=== PATIENT | female | born 1980 | race Caucasian/White ===

== ENCOUNTER 2022-06-25 10:55 | Outpatient (RCR) | payer OTHER, SELFPAY ==
[2022-06-25] VITALS (11 sets, daily range): BP systolic 100–127; BP diastolic 36–82
[2022-06-25] MEDS: NSS 250 IV (11:25)
[2022-06-25] MEDS: REMICADE 250 MG IV (11:25)
[2022-06-25] MEDS: ZYRTEC 10 MG PO (11:26)
[2022-06-25] MEDS: TYLENOL 650 MG PO (11:26)
== END 2022-07-17 23:59 | disposition home or self-care (01) ==
LOC: OID 10:55
PROVIDERS: ATTENDING PHYSICIAN Internal Medicine; FAMILY PHYSICIAN Family Medicine
DX: L40.59 Other psoriatic arthropathy (principal)
CPT/HCPCS: 96360; 96361; 96365; 96366; 96413; 96415; J1745

== ENCOUNTER 2023-06-19 11:35 | Outpatient (RCR) | payer OTHER, SELFPAY ==
[2023-05-22] VITALS (10 sets, daily range): BP systolic 92–113; BP diastolic 59–72
[2023-05-22] MEDS: TYLENOL 650 MG PO (13:32)
[2023-05-22] MEDS: ZYRTEC 10 MG PO (13:32)
[2023-05-22] MEDS: NSS 250 IV (13:33)
[2023-05-22] MEDS: REMICADE 250 MG IV (13:33)
[2023-06-19] VITALS (10 sets, daily range): BP systolic 104–125; BP diastolic 56–78
[2023-06-19] MEDS: REMICADE 250 MG IV (12:04)
[2023-06-19] MEDS: TYLENOL 650 MG PO (12:04)
[2023-06-19] MEDS: ZYRTEC 10 MG PO (12:04)
[2023-06-19] MEDS: NSS 250 IV (12:05)
[2023-06-19 12:31] LABS: % Basophils 0.9 % (0-2); % Immature Granulocytes 0.3 % (0-0.5); % Lymphocytes 36.3 % (20.5-51.1); % Monocytes 8.2 % (1.7-9.3); % Neutrophils 49.3 % (42.2-75.2); Absolute Basophils 0.1 10^3/uL (0-0.2); Absolute Eosinophils 0.3 10^3/uL (0-0.7); Absolute Lymphocytes 2.1 10^3/uL (1.2-3.4); Absolute Monocytes 0.5 10^3/uL (0.1-0.6); Absolute Neutrophils 2.8 10^3/uL (1.4-6.5); Hematocrit 30.6 % (37.0-47.0); Hemoglobin 9.9 g/dL (12.0-16.0); Mean Corp Hgb Conc. 32.4 g/dL (33.0-37.0); Mean Corpuscular Hgb 27.9 pg (27.0-31.0); Mean Corpuscular Volume 86.2 fL (81.0-99.0); Mean Platelet Volume 10.2 fL (7.4-10.4); Nucleated Red Blood Cells % 0 %; Platelet Count 240 10^3/uL (130-400); Red Blood Cell Count 3.55 10^6/uL (4.20-5.40); Red Cell Dist. Width 15.8 % (11.5-14.5); White Blood Cell Count 5.8 10^3/uL (4.8-10.8)
[2023-06-19 12:47] LABS: ALT (SGPT) 21 U/L (0-35); AST (SGOT) 26 U/L (14-36); Albumin 4.1 g/dl (3.5-5.0); Alkaline Phosphatase 79 U/L (38-126); Direct Bilirubin 0.4 mg/dl (0.0-0.4); Total Bilirubin 0.4 mg/dl (0.2-1.3); Total Protein 7.1 g/dl (6.3-8.2)
== END 2023-06-19 23:59 | disposition home or self-care (01) ==
LOC: OID 11:35
PROVIDERS: ATTENDING PHYSICIAN Internal Medicine; FAMILY PHYSICIAN Family Medicine
DX: L40.50 Arthropathic psoriasis, unspecified (principal)
CPT/HCPCS: 80076; 85025; 96413; 96415; J1745

== ENCOUNTER 2023-07-17 11:23 | Outpatient (RCR) | payer OTHER, SELFPAY ==
[2023-07-17] VITALS (10 sets, daily range): BP systolic 103–117; BP diastolic 59–69
[2023-07-17] MEDS: ZYRTEC 10 MG PO (11:58)
[2023-07-17] MEDS: SOLU-CORTEF 100 MG IV (11:58)
[2023-07-17] MEDS: TYLENOL 650 MG PO (11:58)
[2023-07-17] MEDS: NSS 250 IV (11:59)
[2023-07-17] MEDS: REMICADE 250 MG IV (11:59)
== END 2023-07-18 11:08 | disposition home or self-care (01) ==
LOC: OID 11:23
PROVIDERS: ATTENDING PHYSICIAN Internal Medicine; FAMILY PHYSICIAN Family Medicine
DX: L40.59 Other psoriatic arthropathy (principal); M46.85 Other specified inflammatory spondylopathies, thoracolumbar region
CPT/HCPCS: 96375; 96413; 96415; J1745

== ENCOUNTER 2023-08-14 10:42 | Outpatient (RCR) | payer OTHER, SELFPAY ==
[2023-08-14] VITALS (11 sets, daily range): BP systolic 100–118; BP diastolic 61–85
[2023-08-14] MEDS: CATHFLO/ACTIVASE 2 MG IV (11:30)
[2023-08-14] MEDS: TYLENOL 650 MG PO (11:32)
[2023-08-14] MEDS: ZYRTEC 10 MG PO (11:32)
[2023-08-14] MEDS: REMICADE 250 MG IV (11:55)
[2023-08-14] MEDS: NSS 250 IV (11:55)
== END 2023-08-15 09:16 | disposition home or self-care (01) ==
LOC: OID 10:42
PROVIDERS: ATTENDING PHYSICIAN Internal Medicine; FAMILY PHYSICIAN Family Medicine
DX: L40.50 Arthropathic psoriasis, unspecified (principal); T82.868A Thrombosis due to vascular prosthetic devices, implants and grafts, initial encounter; Y93.89 Activity, other specified
CPT/HCPCS: 96375; 96413; 96415; J1745; J2997

== ENCOUNTER 2023-09-11 12:58 | Outpatient (RCR) | payer OTHER, SELFPAY ==
[2023-09-11] VITALS (10 sets, daily range): BP systolic 94–113; BP diastolic 63–70
[2023-09-11] MEDS: NSS 250 IV (13:20)
[2023-09-11] MEDS: ZYRTEC 10 MG PO (13:21)
[2023-09-11] MEDS: TYLENOL 650 MG PO (13:21)
[2023-09-11] MEDS: REMICADE 250 MG IV (13:21)
== END 2023-09-12 08:42 | disposition home or self-care (01) ==
LOC: OID 12:58
PROVIDERS: ATTENDING PHYSICIAN Internal Medicine; FAMILY PHYSICIAN Family Medicine
DX: L40.50 Arthropathic psoriasis, unspecified (principal)
CPT/HCPCS: 96413; 96415; J1745

== ENCOUNTER 2023-10-09 12:56 | Outpatient (RCR) | payer OTHER, SELFPAY ==
[2023-10-09] VITALS (10 sets, daily range): BP systolic 100–109; BP diastolic 62–81
[2023-10-09] MEDS: ZYRTEC 10 MG PO (13:38)
[2023-10-09] MEDS: SOLU-CORTEF 100 MG IV (13:39)
[2023-10-09] MEDS: TYLENOL 650 MG PO (13:39)
[2023-10-09] MEDS: NSS 250 IV (13:40)
[2023-10-09] MEDS: REMICADE 250 MG IV (13:40)
[2023-10-09 13:42] LABS: % Basophils 0.5 % (0-2); % Eosinophils 4.3 % (0-6); % Immature Granulocytes 0.2 % (0-0.5); % Lymphocytes 25.3 % (20.5-51.1); % Monocytes 7.2 % (1.7-9.3); % Neutrophils 62.5 % (42.2-75.2); Absolute Eosinophils 0.3 10^3/uL (0-0.7); Absolute Lymphocytes 1.6 10^3/uL (1.2-3.4); Absolute Monocytes 0.5 10^3/uL (0.1-0.6); Absolute Neutrophils 4.1 10^3/uL (1.4-6.5); Hematocrit 30.5 % (37.0-47.0); Hemoglobin 9.6 g/dL (12.0-16.0); Mean Corp Hgb Conc. 31.5 g/dL (33.0-37.0); Mean Corpuscular Volume 85.7 fL (81.0-99.0); Platelet Count 252 10^3/uL (130-400); Red Blood Cell Count 3.56 10^6/uL (4.20-5.40); Red Cell Dist. Width 15.7 % (11.5-14.5); White Blood Cell Count 6.5 10^3/uL (4.8-10.8)
[2023-10-09 15:45] LABS: ALT (SGPT) 15 U/L (0-35); AST (SGOT) 19 U/L (14-36); Alkaline Phosphatase 70 U/L (38-126); Direct Bilirubin 0.2 mg/dl (0.0-0.4); Total Bilirubin 0.2 mg/dl (0.2-1.3)
== END 2023-10-10 10:21 | disposition home or self-care (01) ==
LOC: OID 12:56
PROVIDERS: ATTENDING PHYSICIAN Internal Medicine; FAMILY PHYSICIAN Family Medicine
DX: L40.50 Arthropathic psoriasis, unspecified (principal)
CPT/HCPCS: 80076; 85025; 96375; 96413; 96415; J1745

== ENCOUNTER 2023-11-06 11:25 | Outpatient (RCR) | payer OTHER, SELFPAY ==
[2023-11-06] VITALS (7 sets, daily range): BP systolic 86–107; BP diastolic 44–69
[2023-11-06] MEDS: NSS 250 IV (11:55)
[2023-11-06] MEDS: TYLENOL 650 MG PO (11:57)
[2023-11-06] MEDS: REMICADE 250 MG IV (11:57)
[2023-11-06] MEDS: SOLU-CORTEF 100 MG IV (11:57)
[2023-11-06] MEDS: ZYRTEC 10 MG PO (11:59)
--- NOTE | 2023-11-06 14:38 | PTCARENOTE ---
Pt with no blood return noted from right sc port despite multiple attempts, cath-tara order noted, notified pharmacy and pt, will monitor.
[2023-11-06] MEDS: CATHFLO/ACTIVASE 2 MG IV (14:42)
--- NOTE | 2023-11-06 15:19 | PTCARENOTE ---
+blood return noted after instillation of cath-tara. pt discharged to home.
== END 2023-11-07 09:15 | disposition home or self-care (01) ==
LOC: OID 11:25
PROVIDERS: ATTENDING PHYSICIAN Internal Medicine; FAMILY PHYSICIAN Family Medicine
DX: L40.50 Arthropathic psoriasis, unspecified (principal)
CPT/HCPCS: 96374; 96375; 96413; 96415; J1745; J2997

== ENCOUNTER 2023-12-04 11:23 | Outpatient (RCR) | payer OTHER, SELFPAY ==
[2023-12-04] VITALS (11 sets, daily range): BP systolic 97–106; BP diastolic 51–75
[2023-12-04] MEDS: TYLENOL 650 MG PO (11:46)
[2023-12-04] MEDS: NSS 250 IV (11:46)
[2023-12-04] MEDS: SOLU-CORTEF 100 MG IV (11:47)
[2023-12-04] MEDS: ZYRTEC 10 MG PO (11:47)
[2023-12-04] MEDS: REMICADE 250 MG IV (11:50)
== END 2023-12-05 08:22 | disposition home or self-care (01) ==
LOC: OID 11:23
PROVIDERS: ATTENDING PHYSICIAN Internal Medicine; FAMILY PHYSICIAN Family Medicine
DX: L40.50 Arthropathic psoriasis, unspecified (principal)
CPT/HCPCS: 96365; 96366; 96375; J1745

== ENCOUNTER 2024-01-01 11:27 | Outpatient (RCR) | payer OTHER, SELFPAY ==
[2024-01-01] VITALS (10 sets, daily range): BP systolic 95–121; BP diastolic 66–73
[2024-01-01 12:04] LABS: % Basophils 0.3 % (0-2); % Immature Granulocytes 0.2 % (0-0.5); % Lymphocytes 26.9 % (20.5-51.1); % Monocytes 8.1 % (1.7-9.3); % Neutrophils 61.5 % (42.2-75.2); Absolute Eosinophils 0.2 10^3/uL (0-0.7); Absolute Lymphocytes 1.6 10^3/uL (1.2-3.4); Absolute Monocytes 0.5 10^3/uL (0.1-0.6); Absolute Neutrophils 3.7 10^3/uL (1.4-6.5); Hemoglobin 10.3 g/dL (12.0-16.0); Mean Corp Hgb Conc. 31.2 g/dL (33.0-37.0); Mean Corpuscular Hgb 26.9 pg (27.0-31.0); Mean Corpuscular Volume 86.2 fL (81.0-99.0); Mean Platelet Volume 9.8 fL (7.4-10.4); Platelet Count 245 10^3/uL (130-400); Red Blood Cell Count 3.83 10^6/uL (4.20-5.40)
[2024-01-01] MEDS: TYLENOL 650 MG PO (12:07)
[2024-01-01] MEDS: ZYRTEC 10 MG PO (12:07)
[2024-01-01] MEDS: NSS 250 IV (12:08)
[2024-01-01] MEDS: SOLU-CORTEF 100 MG IV (12:08)
[2024-01-01] MEDS: REMICADE 250 MG IV (12:09)
[2024-01-01 13:20] LABS: ALT (SGPT) 11 U/L (0-35); AST (SGOT) 18 U/L (14-36); Alkaline Phosphatase 82 U/L (38-126); Direct Bilirubin 0.2 mg/dl (0.0-0.4); Total Bilirubin 0.2 mg/dl (0.2-1.3); Total Protein 6.8 g/dl (6.3-8.2)
== END 2024-01-02 09:31 | disposition home or self-care (01) ==
LOC: OID 11:27
PROVIDERS: ATTENDING PHYSICIAN Internal Medicine; FAMILY PHYSICIAN Family Medicine
DX: L40.50 Arthropathic psoriasis, unspecified (principal)
CPT/HCPCS: 36591; 80076; 85025; 96375; 96413; 96415; J1745

== ENCOUNTER 2024-01-29 11:20 | Outpatient (RCR) | payer OTHER, SELFPAY ==
[2024-01-29] VITALS (12 sets, daily range): BP systolic 89–104; BP diastolic 57–67
[2024-01-29] MEDS: TYLENOL 650 MG PO (11:56)
[2024-01-29] MEDS: SOLU-CORTEF 100 MG IV (11:56)
[2024-01-29] MEDS: NSS 250 IV (11:57)
[2024-01-29] MEDS: ZYRTEC 10 MG PO (11:57)
[2024-01-29] MEDS: REMICADE 250 MG IV (11:58)
== END 2024-01-30 11:17 | disposition home or self-care (01) ==
LOC: OID 11:20
PROVIDERS: ATTENDING PHYSICIAN Internal Medicine; FAMILY PHYSICIAN Family Medicine
DX: L40.8 Other psoriasis (principal); M46.95 Unspecified inflammatory spondylopathy, thoracolumbar region; L40.50 Arthropathic psoriasis, unspecified; D50.0 Iron deficiency anemia secondary to blood loss (chronic); N18.30 Chronic kidney disease, stage 3 unspecified
CPT/HCPCS: 96365; 96375; 96413; 96415; J1745

== ENCOUNTER 2024-02-26 11:34 | Outpatient (RCR) | payer OTHER, SELFPAY ==
[2024-02-26] VITALS (10 sets, daily range): BP systolic 54–103; BP diastolic 47–64
[2024-02-26] MEDS: ZYRTEC 10 MG PO (11:54)
[2024-02-26] MEDS: TYLENOL 650 MG PO (11:54)
[2024-02-26] MEDS: NSS 250 IV (11:55)
[2024-02-26] MEDS: SOLU-CORTEF 100 MG IV (11:55)
[2024-02-26] MEDS: REMICADE 250 MG IV (11:56)
== END 2024-02-27 11:41 | disposition home or self-care (01) ==
LOC: OID 11:34
PROVIDERS: ATTENDING PHYSICIAN Internal Medicine; FAMILY PHYSICIAN Family Medicine
DX: L40.59 Other psoriatic arthropathy (principal); M46.85 Other specified inflammatory spondylopathies, thoracolumbar region; D50.0 Iron deficiency anemia secondary to blood loss (chronic)
CPT/HCPCS: 96375; 96413; 96415; J1745

== ENCOUNTER 2024-03-25 11:27 | Outpatient (RCR) | payer OTHER, SELFPAY ==
[2024-03-25] VITALS (10 sets, daily range): BP systolic 93–105; BP diastolic 62–69
[2024-03-25] MEDS: TYLENOL 650 MG PO (11:58)
[2024-03-25] MEDS: NSS 250 IV (11:58)
[2024-03-25] MEDS: ZYRTEC 10 MG PO (11:59)
[2024-03-25] MEDS: SOLU-CORTEF 100 MG IV (11:59)
[2024-03-25] MEDS: REMICADE 250 MG IV (12:00)
[2024-03-25 12:03] LABS: % Basophils 0.4 % (0-2); % Eosinophils 2.5 % (0-6); % Immature Granulocytes 0.1 % (0-0.5); % Lymphocytes 26.5 % (20.5-51.1); % Monocytes 9.9 % (1.7-9.3); % Neutrophils 60.6 % (42.2-75.2); Absolute Eosinophils 0.2 10^3/uL (0-0.7); Absolute Lymphocytes 2.2 10^3/uL (1.2-3.4); Absolute Monocytes 0.8 10^3/uL (0.1-0.6); Absolute Neutrophils 4.9 10^3/uL (1.4-6.5); Hematocrit 32.7 % (37.0-47.0); Hemoglobin 10.5 g/dL (12.0-16.0); Mean Corp Hgb Conc. 32.1 g/dL (33.0-37.0); Mean Corpuscular Hgb 28.5 pg (27.0-31.0); Mean Corpuscular Volume 88.9 fL (81.0-99.0); Mean Platelet Volume 9.8 fL (7.4-10.4); Platelet Count 257 10^3/uL (130-400); Red Blood Cell Count 3.68 10^6/uL (4.20-5.40); White Blood Cell Count 8.1 10^3/uL (4.8-10.8)
[2024-03-25 13:53] LABS: ALT (SGPT) 16 U/L (0-35); AST (SGOT) 20 U/L (14-36); Alkaline Phosphatase 75 U/L (38-126); Direct Bilirubin 0.1 mg/dl (0.0-0.4); Total Bilirubin 0.2 mg/dl (0.2-1.3); Total Protein 6.8 g/dl (6.3-8.2)
== END 2024-03-26 10:59 | disposition home or self-care (01) ==
LOC: OID 11:27
PROVIDERS: ATTENDING PHYSICIAN Internal Medicine; FAMILY PHYSICIAN Family Medicine
DX: L40.50 Arthropathic psoriasis, unspecified (principal)
CPT/HCPCS: 80076; 85025; 96375; 96413; 96415; J1745

== ENCOUNTER → 2024-04-02 12:34 | Outpatient (REF) | payer OTHER, SELFPAY | LOC: HWCARD 12:34 | PROVIDERS: ATTENDING PHYSICIAN Registered Nurse; FAMILY PHYSICIAN Family Medicine | DX: R94.31 Abnormal electrocardiogram [ECG] [EKG] (principal) | CPT/HCPCS: 93005 ==

== ENCOUNTER 2024-04-22 11:27 | Outpatient (RCR) | payer OTHER, SELFPAY ==
[2024-04-22] VITALS (10 sets, daily range): BP systolic 98–104; BP diastolic 58–70
[2024-04-22] MEDS: SOLU-CORTEF 100 MG IV (12:04)
[2024-04-22] MEDS: TYLENOL 650 MG PO (12:05)
[2024-04-22] MEDS: ZYRTEC 10 MG PO (12:05)
[2024-04-22] MEDS: NSS 250 IV (12:06)
[2024-04-22] MEDS: REMICADE 250 MG IV (12:06)
== END 2024-04-23 11:30 | disposition home or self-care (01) ==
LOC: OID 11:27
PROVIDERS: ATTENDING PHYSICIAN Internal Medicine; FAMILY PHYSICIAN Family Medicine
DX: L40.50 Arthropathic psoriasis, unspecified (principal)
CPT/HCPCS: 96374; 96375; 96413; 96415; J1745

== ENCOUNTER 2024-06-19 11:58 | Outpatient (RCR) | payer OTHER, SELFPAY ==
[2024-05-22] VITALS (11 sets, daily range): BP systolic 93–102; BP diastolic 63–85
[2024-05-22] MEDS: CATHFLO/ACTIVASE 2 MG IV (13:30)
[2024-05-22] MEDS: NSS 250 IV (14:01)
[2024-05-22] MEDS: ZYRTEC 10 MG PO (14:02)
[2024-05-22] MEDS: TYLENOL 650 MG PO (14:02)
[2024-05-22] MEDS: REMICADE 250 MG IV (14:03)
[2024-05-22] MEDS: SOLU-CORTEF 100 MG IV (14:03)
--- NOTE | 2024-05-22 14:49 | PTCARENOTE ---
1330: pt with no blood return noted from right sc port , flushes easily but no blood return despite repositioning etc. Cath tara ordered by APOORVA Centeno in unit. will follow.
1445: +blood return noted from right sc port after instillation of cath-tara.
[2024-06-19] VITALS (11 sets, daily range): BP systolic 79–99; BP diastolic 49–62
[2024-06-19] MEDS: NSS 250 IV (12:18)
[2024-06-19] MEDS: ZYRTEC 10 MG PO (12:19)
[2024-06-19] MEDS: SOLU-CORTEF 100 MG IV (12:19)
[2024-06-19] MEDS: TYLENOL 650 MG PO (12:20)
[2024-06-19] MEDS: REMICADE 250 MG IV (12:20)
[2024-06-19 12:24] LABS: % Basophils 0.5 % (0-2); % Eosinophils 2.9 % (0-6); % Immature Granulocytes 0.2 % (0-0.5); % Lymphocytes 32.2 % (20.5-51.1); % Monocytes 8.9 % (1.7-9.3); % Neutrophils 55.3 % (42.2-75.2); Absolute Eosinophils 0.2 10^3/uL (0-0.7); Absolute Monocytes 0.6 10^3/uL (0.1-0.6); Absolute Neutrophils 3.5 10^3/uL (1.4-6.5); Hematocrit 31.2 % (37.0-47.0); Hemoglobin 10.1 g/dL (12.0-16.0); Mean Corp Hgb Conc. 32.4 g/dL (33.0-37.0); Mean Corpuscular Hgb 29.4 pg (27.0-31.0); Mean Corpuscular Volume 90.7 fL (81.0-99.0); Platelet Count 242 10^3/uL (130-400); Red Blood Cell Count 3.44 10^6/uL (4.20-5.40); Red Cell Dist. Width 13.7 % (11.5-14.5); White Blood Cell Count 6.3 10^3/uL (4.8-10.8)
[2024-06-19 13:07] LABS: ALT (SGPT) 13 U/L (0-35); AST (SGOT) 19 U/L (14-36); Albumin 3.8 g/dl (3.5-5.0); Alkaline Phosphatase 69 U/L (38-126); Direct Bilirubin 0.1 mg/dl (0.0-0.4); Total Bilirubin 0.5 mg/dl (0.2-1.3); Total Protein 6.6 g/dl (6.3-8.2)
== END 2024-06-19 23:59 | disposition home or self-care (01) ==
LOC: OID 11:58
PROVIDERS: ATTENDING PHYSICIAN Internal Medicine; FAMILY PHYSICIAN Family Medicine
DX: L40.50 Arthropathic psoriasis, unspecified (principal); T82.868A Thrombosis due to vascular prosthetic devices, implants and grafts, initial encounter; Y93.89 Activity, other specified
CPT/HCPCS: 36591; 80076; 85025; 96374; 96375; 96413; 96415; J1745; J2997

== ENCOUNTER 2024-07-17 11:21 | Outpatient (RCR) | payer OTHER, SELFPAY ==
[2024-07-17] VITALS (11 sets, daily range): BP systolic 72–117; BP diastolic 48–61
[2024-07-17] MEDS: TYLENOL 650 MG PO (11:59)
[2024-07-17] MEDS: ZYRTEC 10 MG PO (12:00)
[2024-07-17] MEDS: NSS 250 IV (12:00)
[2024-07-17] MEDS: REMICADE 250 MG IV (12:36)
[2024-07-17] MEDS: CATHFLO/ACTIVASE 2 MG IV (15:41)
== END 2024-07-17 23:59 | disposition home or self-care (01) ==
LOC: OID 11:21
PROVIDERS: ATTENDING PHYSICIAN Internal Medicine; FAMILY PHYSICIAN Family Medicine
DX: L40.50 Arthropathic psoriasis, unspecified (principal); T82.868A Thrombosis due to vascular prosthetic devices, implants and grafts, initial encounter; Y93.89 Activity, other specified
CPT/HCPCS: 96361; 96374; 96375; 96413; 96415; J1745; J2997

== ENCOUNTER 2024-08-14 11:25 | Outpatient (RCR) | payer OTHER, SELFPAY ==
[2024-08-14 11:46] VITALS: BP 103/68
[2024-08-14] MEDS: ZYRTEC 10 MG PO (11:56)
[2024-08-14] MEDS: TYLENOL 650 MG PO (11:56)
[2024-08-14] MEDS: NSS 250 IV (11:57)
[2024-08-14] MEDS: REMICADE 250 MG IV (12:01)
[2024-08-14 12:04] VITALS: BP 94/54
[2024-08-14 12:09] VITALS: BMI 23.3
[2024-08-14 12:34] VITALS: BP 99/60
[2024-08-14 12:49] VITALS: BP 104/61
[2024-08-14 13:04] VITALS: BP 104/61
[2024-08-14 13:19] VITALS: BP 102/61
== END 2024-08-17 09:03 | disposition home or self-care (01) ==
LOC: OID 11:25
PROVIDERS: ATTENDING PHYSICIAN Internal Medicine; FAMILY PHYSICIAN Family Medicine
DX: L40.50 Arthropathic psoriasis, unspecified (principal); T82.868A Thrombosis due to vascular prosthetic devices, implants and grafts, initial encounter; Y93.89 Activity, other specified
CPT/HCPCS: 96365; 96366; J1745

== ENCOUNTER 2024-09-11 11:31 | Outpatient (RCR) | payer OTHER, SELFPAY ==
[2024-09-11] VITALS (10 sets, daily range): BP systolic 74–96; BP diastolic 41–63
[2024-09-11] MEDS: NSS 250 IV (11:52)
[2024-09-11] MEDS: TYLENOL 650 MG PO (11:52)
[2024-09-11] MEDS: REMICADE 250 MG IV (11:53)
[2024-09-11] MEDS: ZYRTEC 10 MG PO (11:53)
== END 2024-09-14 10:05 | disposition home or self-care (01) ==
LOC: OID 11:31
PROVIDERS: ATTENDING PHYSICIAN Internal Medicine; FAMILY PHYSICIAN Family Medicine
DX: L40.50 Arthropathic psoriasis, unspecified (principal); T82.868A Thrombosis due to vascular prosthetic devices, implants and grafts, initial encounter; Y93.89 Activity, other specified
CPT/HCPCS: 96413; 96415; J1745

== ENCOUNTER 2024-10-09 10:45 | Outpatient (RCR) | payer OTHER, SELFPAY ==
[2024-10-09] VITALS (10 sets, daily range): BP systolic 92–102; BP diastolic 53–71
[2024-10-09] MEDS: NSS 250 IV (11:21)
[2024-10-09] MEDS: TYLENOL 650 MG PO (11:22)
[2024-10-09] MEDS: ZYRTEC 10 MG PO (11:23)
[2024-10-09] MEDS: REMICADE 250 MG IV (11:23)
== END 2024-10-13 11:01 | disposition home or self-care (01) ==
LOC: OID 10:45
PROVIDERS: ATTENDING PHYSICIAN Internal Medicine; FAMILY PHYSICIAN Family Medicine
DX: L40.50 Arthropathic psoriasis, unspecified (principal); T82.868A Thrombosis due to vascular prosthetic devices, implants and grafts, initial encounter; Y93.89 Activity, other specified
CPT/HCPCS: 96365; 96366; J1745

== ENCOUNTER 2024-11-06 11:29 | Outpatient (RCR) | payer OTHER, SELFPAY ==
[2024-11-06] VITALS (11 sets, daily range): BP systolic 79–101; BP diastolic 45–66
[2024-11-06] MEDS: CATHFLO/ACTIVASE 2 MG INTRACATH (12:10)
[2024-11-06] MEDS: ZYRTEC 10 MG PO (13:06)
[2024-11-06] MEDS: TYLENOL 650 MG PO (13:06)
[2024-11-06] MEDS: NSS 250 IV (13:07)
[2024-11-06] MEDS: REMICADE 250 MG IV (13:07)
--- NOTE | 2024-11-06 14:37 | PTCARENOTE ---
late entry: 1210: pt's right sc port with flusing easily but with no blood return despite multiple attempt and repositioning. Cath-tara given per prn order..
1305: pt with +blood return from port, flushing easily.
== END 2024-11-09 10:03 | disposition home or self-care (01) ==
LOC: OID 11:29
PROVIDERS: ATTENDING PHYSICIAN Internal Medicine; FAMILY PHYSICIAN Family Medicine
DX: L40.50 Arthropathic psoriasis, unspecified (principal); T82.868A Thrombosis due to vascular prosthetic devices, implants and grafts, initial encounter; Y83.1 Surgical operation with implant of artificial internal device as the cause of abnormal reaction of the patient, or of later complication, without mention of misadventure at the time of the procedure
CPT/HCPCS: 96413; 96415; J1745; J2997

== ENCOUNTER 2024-12-04 10:42 | Outpatient (RCR) | payer OTHER, SELFPAY ==
[2024-12-04] VITALS (11 sets, daily range): BP systolic 85–97; BP diastolic 49–59
[2024-12-04] MEDS: TYLENOL 650 MG PO (11:21)
[2024-12-04] MEDS: ZYRTEC 10 MG PO (11:21)
[2024-12-04] MEDS: REMICADE 250 MG IV (11:22)
[2024-12-04] MEDS: NSS 250 IV (11:22)
== END 2024-12-07 10:05 | disposition home or self-care (01) ==
LOC: OID 10:42
PROVIDERS: ATTENDING PHYSICIAN Internal Medicine; FAMILY PHYSICIAN Family Medicine
DX: L40.50 Arthropathic psoriasis, unspecified (principal); T82.868A Thrombosis due to vascular prosthetic devices, implants and grafts, initial encounter; Y93.89 Activity, other specified
CPT/HCPCS: 96413; 96415; J1745

== ENCOUNTER 2025-01-01 11:29 | Outpatient (RCR) | payer OTHER, SELFPAY ==
[2025-01-01] VITALS (10 sets, daily range): BP systolic 83–104; BP diastolic 55–65
[2025-01-01] MEDS: TYLENOL 650 MG PO (12:07)
[2025-01-01] MEDS: REMICADE 250 MG IV (12:08)
[2025-01-01] MEDS: NSS 250 IV (12:08)
[2025-01-01] MEDS: ZYRTEC 10 MG PO (12:08)
[2025-01-01 12:12] LABS: Hematocrit 29.5 % (37.0-47.0); Hemoglobin 9.0 g/dL (12.0-16.0); Mean Corp Hgb Conc. 30.5 g/dL (33.0-37.0); Mean Corpuscular Volume 84.8 fL (81.0-99.0); Nucleated Red Blood Cells % 0 %; Platelet Count 242 10^3/uL (130-400); Red Cell Dist. Width 23.7 % (11.5-14.5)
[2025-01-01 12:24] LABS: ALT (SGPT) 19 U/L (0-35); AST (SGOT) 20 U/L (14-36); Albumin 3.7 g/dl (3.5-5.0); Alkaline Phosphatase 68 U/L (38-126); Total Protein 6.2 g/dl (6.3-8.2)
== END 2025-01-04 08:36 | disposition home or self-care (01) ==
LOC: OID 11:29
PROVIDERS: ATTENDING PHYSICIAN Internal Medicine; FAMILY PHYSICIAN Family Medicine
DX: L40.50 Arthropathic psoriasis, unspecified (principal); T82.868A Thrombosis due to vascular prosthetic devices, implants and grafts, initial encounter; Y93.89 Activity, other specified
CPT/HCPCS: 36591; 80076; 85025; 86480; 96365; 96366; J1745

== ENCOUNTER 2025-01-29 11:25 | Outpatient (RCR) | payer OTHER, SELFPAY ==
[2025-01-29] VITALS (10 sets, daily range): BP systolic 80–94; BP diastolic 47–64
[2025-01-29] MEDS: CATHFLO/ACTIVASE 2 MG INTRACATH (11:53)
--- NOTE | 2025-01-29 12:04 | PTCARENOTE ---
1153: pt with no blood return from right sc port, despite flushing easily and repositioning. cath-tara given per order, will continue to monitor.
[2025-01-29] MEDS: NSS 250 IV (12:42)
[2025-01-29] MEDS: TYLENOL 650 MG PO (12:42)
[2025-01-29] MEDS: REMICADE 250 MG IV (12:43)
[2025-01-29] MEDS: ZYRTEC 10 MG PO (12:43)
--- NOTE | 2025-01-29 12:47 | PTCARENOTE ---
+blood return after instillation of cath-tara, will monitor.
== END 2025-01-29 15:25 | disposition home or self-care (01) ==
LOC: OID 11:25
PROVIDERS: ATTENDING PHYSICIAN Internal Medicine; FAMILY PHYSICIAN Family Medicine
DX: L40.50 Arthropathic psoriasis, unspecified (principal); T82.868A Thrombosis due to vascular prosthetic devices, implants and grafts, initial encounter; Y93.89 Activity, other specified
CPT/HCPCS: 96413; 96415; J1745; J2997

== ENCOUNTER 2025-02-26 11:30 | Outpatient (RCR) | payer OTHER, SELFPAY ==
[2025-02-26] VITALS (11 sets, daily range): BP systolic 80–97; BP diastolic 48–62
[2025-02-26] MEDS: NSS 250 IV (11:50)
[2025-02-26] MEDS: REMICADE 250 MG IV (11:51)
[2025-02-26] MEDS: TYLENOL 650 MG PO (11:51)
[2025-02-26] MEDS: ZYRTEC 10 MG PO (11:51)
== END 2025-03-01 09:36 | disposition home or self-care (01) ==
LOC: OID 11:30
PROVIDERS: ATTENDING PHYSICIAN Internal Medicine; FAMILY PHYSICIAN Family Medicine
DX: L40.50 Arthropathic psoriasis, unspecified (principal)
CPT/HCPCS: 96413; 96415; J1745

== ENCOUNTER 2025-03-26 11:29 | Outpatient (RCR) | payer OTHER, SELFPAY ==
[2025-03-26 11:45] VITALS: BP 106/64
[2025-03-26] MEDS: NSS 250 IV (11:57)
[2025-03-26] MEDS: REMICADE 250 MG IV (11:59)
[2025-03-26] MEDS: TYLENOL 650 MG PO (11:59)
[2025-03-26] MEDS: ZYRTEC 10 MG PO (11:59)
[2025-03-26 12:00] VITALS: BP 105/63
[2025-03-26 12:45] VITALS: BP 106/75
[2025-03-26 13:00] VITALS: BP 110/62
[2025-03-26 14:15] VITALS: BP 103/68
[2025-03-26] MEDS: CATHFLO/ACTIVASE 2 MG INTRACATH (14:32)
--- NOTE | 2025-03-26 14:42 | PTCARENOTE ---
pt with no blood return at end of treatment, despite multiple attempts and pt repositioning. Port flushing well. Cath-tara instilled per order will follow.
--- NOTE | 2025-03-26 14:59 | PTCARENOTE ---
+blood return noted after cath tara instillation. port heparinized and pt d/c to home.
== END 2025-04-18 23:59 | disposition home or self-care (01) ==
LOC: OID 11:29
PROVIDERS: ATTENDING PHYSICIAN Internal Medicine; FAMILY PHYSICIAN Family Medicine
DX: L40.50 Arthropathic psoriasis, unspecified (principal); T82.868A Thrombosis due to vascular prosthetic devices, implants and grafts, initial encounter; Y93.89 Activity, other specified
CPT/HCPCS: 86480; 96413; 96415; J1745; J2997

== ENCOUNTER 2025-04-23 11:27 | Outpatient (RCR) | payer OTHER, SELFPAY ==
[2025-04-23] VITALS (10 sets, daily range): BP systolic 92–103; BP diastolic 56–66
[2025-04-23] MEDS: CATHFLO/ACTIVASE 2 MG IV (11:57)
--- NOTE | 2025-04-23 12:12 | PTCARENOTE ---
1157: pt with no blood return from right sc port, flushes with ease, however no blood return despite repositioning and multiple attempts. Cath-tara given , will continue to monitor.
[2025-04-23] MEDS: NSS 250 IV (12:28)
[2025-04-23] MEDS: TYLENOL 650 MG PO (12:29)
[2025-04-23] MEDS: ZYRTEC 10 MG PO (12:29)
[2025-04-23] MEDS: REMICADE 250 MG IV (12:30)
--- NOTE | 2025-04-23 12:34 | PTCARENOTE ---
+blood return from port after instillation of cath-tara, will follow.
== END 2025-04-26 11:34 | disposition home or self-care (01) ==
LOC: OID 11:27
PROVIDERS: ATTENDING PHYSICIAN Internal Medicine; FAMILY PHYSICIAN Family Medicine
DX: L40.50 Arthropathic psoriasis, unspecified (principal); T82.868A Thrombosis due to vascular prosthetic devices, implants and grafts, initial encounter; Y93.89 Activity, other specified
CPT/HCPCS: 96375; 96413; 96415; J1745; J2997